=== PATIENT | male | born 1990 | race African-American/Black ===

== ENCOUNTER 2019-08-03 15:11 | Emergency (ER) | payer OTHER ==
[2019-08-03] MEDS ORDERED: Ibuprofen TAB* 600 MG PO ONE (16:19)
--- NOTE | 2019-08-03 16:22 | ED ---
Upper Extremity Pain - HPI Summary HPI Summary: 29 year old male presents to the ED with a chief complaint of elbow pain starting yesterday. Patient worked out for the first time in a long time 2 days ago. Patient reports exhaustion and a slight headache this morning. He denies tick bites, nausea, and vomiting. Patient rarely drinks alcohol, and smokes tobacco once every few months. Medications reviewed. Allergies noted. - History of Current Complaint Chief Complaint: EDExtremityUpper Stated Complaint: JOINT PAIN PER PT Time Seen by Provider: 08/03/19 16:10 Hx Obtained From: Patient Mechanism Of Injury: Other - from working out Onset/Duration: Started Days Ago Timing: Constant Severity Initially: Mild Severity Currently: Mild Pain Location: Elbow Character: Aching Alleviating Factor(s): Nothing Associated Signs & Symptoms: Positive: Other - headache. Negative: Nausea, Vomiting - Allergies/Home Medications Allergies/Adverse Reactions: Allergies Allergy/AdvReac Type Severity Reaction Status Date / Time quinine Allergy Hives Verified 08/03/19 15:18 Home Medications: Home Medications NK [No Home Medications Reported] 08/03/19 [History Confirmed 08/03/19] PMH/Surg Hx/FS Hx/Imm Hx Previously Healthy: Yes Musculoskeletal History: Denies: Hx Arthritis - Surgical History Surgical History: None Infectious Disease History: No Infectious Disease History: Denies: Traveled Outside the [place] in Last 30 Days - Family History Known Family History: Positive: None - Social History Alcohol Use: Occasionally Substance Use Type: Reports: None Smoking Status (MU): Never Smoked Tobacco Review of Systems Positive: Fatigue Negative: Vomiting, Nausea Positive: Arthralgia Positive: Headache All Other Systems Reviewed And Are Negative: Yes Physical Exam - Summary Physical Exam Summary: Constitutional: Well-developed, Well-nourished, Alert. (-) Distressed Skin: Warm, Dry HENT: Normocephalic; Atraumatic Eyes: Conjunctiva normal Neck: Musculoskeletal ROM normal neck. (-) JVD, (-) Stridor, (-) Tracheal deviation Cardio: Rhythm regular, rate normal, Heart sounds normal; Intact distal pulses; Radial pulses are 2+ and symmetric. (-) Murmur Pulmonary/Chest wall: Effort normal. (-) Respiratory distress, (-) Wheezes, (-) Rales Abd: Soft, (-) tenderness, (-) Distension, (-) Guarding, (-) Rebound Musculoskeletal: (-) Edema Lymph: (-) Cervical adenopathy Neuro: Alert, Oriented x3 Psych: Mood and affect Normal Triage Information Reviewed: Yes Vital Signs On Initial Exam: Initial Vitals Temp Pulse Resp BP Pulse Ox 98.3 F 55 15 122/85 100 08/03/19 15:13 08/03/19 15:13 08/03/19 15:13 08/03/19 15:13 08/03/19 15:13 Vital Signs Reviewed: Yes Procedures - Sedation Patient Received Moderate/Deep Sedation with Procedure: No Diagnostics - Vital Signs Vital Signs Temp Pulse Resp BP Pulse Ox 08/03/19 15:13 98.3 F 55 15 122/85 100 - Laboratory Lab Statement: Any lab studies that have been ordered have been reviewed, and results considered in the medical decision making process. Course/Dx - Course Course Of Treatment: Patient's history of bilateral elbow pain likely due from increased exercise. Patient has no other symptoms and is overall well- appearing. Patient's symptoms are not consistent with tick illness, rheumatoid arthritis, or any other emergent cause of joint pain. Patient was given a dose of Motrin and encouraged to workout in a safer manner. - Diagnoses Provider Diagnoses: Arthralgia Discharge ED - Sign-Out/Discharge Documenting (check all that apply): Patient Departure - dc - Discharge Plan Condition: Stable Disposition: HOME Patient Education Materials: Arthralgia (ED) Referrals: [facility] [Outside] Additional Instructions: Follow up with a primary care provider in 2-3 days. Return to the Emergency Department if you experience new or worsened symptoms. - Billing Disposition and Condition Condition: STABLE Disposition: Home - Attestation Statements Document Initiated by Marlinibe: Yes Documenting Scribe: Guido Delaney Provider For Whom Nathaniel is Documenting (Include Credential): Billy Nicholson MD. Scribe Attestation: Guido Otero scribed for Billy Nicholson MD. on 08/03/19 at 2119. Scribe Documentation Reviewed: Yes Provider Attestation: The documentation as recorded by the scribeGuido accurately reflects the service I personally performed and the decisions made by , Billy Nicholson MD. Status of Scribe Document: Viewed
[2019-08-03 17:23] VITALS: BP 131/88
== END 2019-08-03 16:35 | disposition home or self-care (01) ==
LOC: ED 15:11
DX: M25.521 Pain in right elbow (principal); M25.522 Pain in left elbow; F17.200 Nicotine dependence, unspecified, uncomplicated; Z88.8 Allergy status to other drugs, medicaments and biological substances
CPT/HCPCS: 99282; A9270-GY